=== PATIENT | female | born 1985 | race Caucasian/White ===

== ENCOUNTER 2021-04-26 08:41 | Inpatient (IN) | payer OTHER ==
[2021-04-26] MEDS ORDERED: Clindamycin/D5W 900 mg/50 ml Premix Bag ONE (09:13)
[2021-04-26] MEDS ORDERED: Ketorolac Tromethamine 30 MG/ML VIAL ONE (09:13)
[2021-04-26 09:20] LABS: #Eosinphils 0.1 thou/uL (0.0-0.7); #Lymphocytes 2.2 thou/uL (1.20-3.40); #Monocytes 0.7 thou/uL (0.11-0.59); #Neutrophils 6.9 thou/uL (1.40-6.50); %Basophils 0.2 % (0.0-1.0); %Eosinophils 0.8 % (0.0-10.0); %Lymphocytes 22.4 % (21.0-51.0); %Monocytes 7.1 % (0.0-10.0); %Neutrophils 69.5 % (42.0-75.0); Hemoglobin 15.5 g/dL (12.0-16.0); Mean Corpuscular HGB CONC 35.9 g/dL (32.0-36.0); Mean Corpuscular Hemoglobin 29.8 pg (27.0-31.0); Mean Corpuscular Volume 83.1 fL (78.0-98.0); Mean Platelet Volume 6.6 fL (7.4-10.4); Platelet Count 267 thou/uL (130-400); RBC Distribution Width 12.7 % (11.5-14.5); Red Blood Cell (RBC) Count 5.19 mill/uL (4.20-5.40); White Blood Cell (WBC) Count 9.9 thou/uL (4.8-10.8)
[2021-04-26 09:38] LABS: ALT (SGPT) 27 U/L (8-55); AST (SGOT) 20 U/L (5-34); Albumin 4.1 g/dL (3.5-5.0); Alkaline Phosphatase 102 U/L (40-110); Anion Gap 11 mmol/L (10-20); BUN (Urea Nitrogen) 8 mg/dL (7.0-18.7); Bilirubin, Total 0.4 mg/dL (0.2-1.2); Calc. Creatinine Clearance 0 mL/min (70-130); Calcium 9.4 mg/dL (7.8-10.44); Carbon Dioxide 23 mmol/L (22-29); Chloride 105 mmol/L (98-107); Globulin 3.9 g/dL (2.4-3.5); Glucose 110 mg/dL (70-105); Potassium 4.2 mmol/L (3.5-5.1); Sodium 135 mmol/L (136-145)
[2021-04-26 10:18] LABS: BHCG - Serum Negative (NEGATIVE); Pregs Control Background? CLEAR/WHITE (CLR/WHITE); Pregs Control Bar Appear? YES (CONTROL BAR)
[2021-04-26] MEDS ORDERED: ISOVUE-370 76%-LOCM 1 ML ONE (11:46)
[2021-04-26] MEDS ORDERED: Calcium Carbonate 500 MG ChewTAB PO PRN (12:22)
[2021-04-26] MEDS ORDERED: HYDROcodone/Acetaminophen 5/325 mg Tablet PO PRN (12:22)
[2021-04-26] MEDS ORDERED: Ondansetron PF 4 MG/2 ML Vial IVP PRN (12:22)
[2021-04-26 14:13] VITALS: BMI 29.5
[2021-04-26] MEDS: Ampicillin/Sulbactam 3 GM in Sodium Chloride 0.9% 100 ML IVPB SCH ×2 (14:20→17:50)
[2021-04-26] MEDS ORDERED: FLU VACC QS2021-22(6MOS UP)/PF 60 MCG/0.5 ML SYRINGE IM ONE (14:30)
[2021-04-26] MEDS: Acetaminophen 325 MG TAB PO PRN ×2 (14:48→20:46)
[2021-04-26] MEDS ORDERED: Ketorolac Tromethamine 30 MG/ML VIAL IVP PRN (14:52)
[2021-04-26] MEDS ORDERED: Levothyroxine Sodium 88 MCG TAB PO SCH (15:00)
[2021-04-26] MEDS ORDERED: Morphine 4 MG/ML VIAL SLOW IVP PRN (15:01)
[2021-04-26] MEDS: Chlorhexidine Gluconate 15 ML UDCUP SSP SCH (20:41)
[2021-04-27] MEDS: Ampicillin/Sulbactam 3 GM in Sodium Chloride 0.9% 100 ML IVPB SCH ×5 (00:01→23:07)
[2021-04-27 00:29] LABS: SARS-CoV-2 PCR by NAA Not Detected (NotDetected)
[2021-04-27] MEDS: Levothyroxine Sodium 88 MCG TAB PO SCH (05:09)
[2021-04-27 06:53] LABS: #Eosinphils 0.2 thou/uL (0.0-0.7); #Monocytes 0.7 thou/uL (0.11-0.59); #Neutrophils 4.4 thou/uL (1.40-6.50); %Basophils 0.2 % (0.0-1.0); %Eosinophils 1.9 % (0.0-10.0); %Lymphocytes 36.2 % (21.0-51.0); %Monocytes 8.4 % (0.0-10.0); %Neutrophils 53.3 % (42.0-75.0); Hemoglobin 12.6 g/dL (12.0-16.0); Mean Corpuscular Hemoglobin 29.3 pg (27.0-31.0); Mean Corpuscular Volume 83.8 fL (78.0-98.0); Mean Platelet Volume 6.8 fL (7.4-10.4); Platelet Count 247 thou/uL (130-400); RBC Distribution Width 12.6 % (11.5-14.5); White Blood Cell (WBC) Count 8.2 thou/uL (4.8-10.8)
[2021-04-27 07:08] LABS: Anion Gap 11 mmol/L (10-20); BUN (Urea Nitrogen) 8 mg/dL (7.0-18.7); Calc. Creatinine Clearance 137 mL/min (70-130); Calcium 8.5 mg/dL (7.8-10.44); Carbon Dioxide 24 mmol/L (22-29); Chloride 105 mmol/L (98-107); Glucose 92 mg/dL (70-105); Potassium 3.8 mmol/L (3.5-5.1); Sodium 136 mmol/L (136-145)
[2021-04-27] MEDS: Chlorhexidine Gluconate 15 ML UDCUP SSP SCH ×2 (08:03→20:51)
[2021-04-27] MEDS ORDERED: Enoxaparin Sodium 40 MG/0.4 ML SYRINGE SC SCH (09:00)
[2021-04-27] MEDS: Acetaminophen 325 MG TAB PO PRN ×2 (11:34→23:06)
[2021-04-28] MEDS: Ampicillin/Sulbactam 3 GM in Sodium Chloride 0.9% 100 ML IVPB SCH (05:36)
[2021-04-28] MEDS: Levothyroxine Sodium 88 MCG TAB PO SCH (05:36)
[2021-04-28] MEDS: Chlorhexidine Gluconate 15 ML UDCUP SSP SCH (08:09)
[2021-04-28] MEDS: Acetaminophen 325 MG TAB PO PRN (08:09)
[2021-04-28 08:15] VITALS: BP 116/81; TEMP 98.4
== END 2021-04-28 12:07 | DRG 137 ==
LOC: ERS 08:41 → T4-A 12:17
PROVIDERS: ADMIT Internal Medicine; ATTEND Internal Medicine
PROC: 0W930ZZ Drainage of Oral Cavity and Throat, Open Approach (ICD-10-PCS; principal; 2021-04-26)
PROC: 0CDWXZ0 Extraction of Upper Tooth, Single, External Approach (ICD-10-PCS; 2021-04-26)
DX: K04.7 Periapical abscess without sinus (principal); L03.211 Cellulitis of face; Z20.822 Contact with and (suspected) exposure to COVID-19; F32.A Depression, unspecified; E03.9 Hypothyroidism, unspecified; K05.30 Chronic periodontitis, unspecified; J30.2 Other seasonal allergic rhinitis; Z79.899 Other long term (current) drug therapy; Z79.890 Hormone replacement therapy; Z83.49 Family history of other endocrine, nutritional and metabolic diseases
CPT/HCPCS: 36415; 70487; 80048; 80053; 83605; 84703; 85025; 87040; 94760; J0295; J1885; J3370; J3490; J7030; Q9966; U0003; U0005